=== PATIENT | male | born 1975 | race Caucasian/White ===

== ENCOUNTER → 2016-10-18 | Outpatient (REF) | payer OTHER | LOC: M SFHCSACK 08:50 | PROVIDERS: ATTEND Physician Assistant | DX: E06.3 Autoimmune thyroiditis (principal) ==

== ENCOUNTER → 2017-06-08 | Outpatient (REF) | payer OTHER ==
[2017-06-08 15:44] LABS: BASO % 0.8 % (0.0-1.0); EOS # 0.1 10^3/uL (0.0-0.50); EOS % 1.9 % (0.0-3.0); IMMATURE GRANULOCYTE % 0.2 % (0-0); LYMPH # 2.1 10^3/uL (1.5-4.5); LYMPH % 40.2 % (24.0-44.0); MEAN CORPUSCULAR HEMOGLOBIN 27.8 pg (27.0-33.0); MEAN CORPUSCULAR VOLUME 84.2 fl (80.0-96.0); MONO # 0.4 10^3/uL (0.0-0.8); MONO % 8.3 % (0.0-5.0); NEUTROPHILS # 2.6 10^3/uL (1.8-7.7); NEUTROPHILS % 48.6 % (36.0-66.0); PLATELET COUNT, AUTOMATED 161 10^3/uL (150-450); RED CELL DISTRIBUTION WIDTH 12.2 % (11.5-14.5); WHITE BLOOD COUNT 5.3 10^3/uL (4.0-10.0)
[2017-06-08 15:55] LABS: ALBUMIN 3.8 GM/DL (3.2-5.2); ALBUMIN/GLOBULIN RATIO 1.23 (1.00-1.93); ALKALINE PHOSPHATASE 46 U/L (45-117); ALT/SGPT 49 U/L (12-78); ANION GAP 8 MEQ/L (8-16); AST/SGOT 24 U/L (15-37); BILIRUBIN,TOTAL 0.5 MG/DL (0.2-1.0); BLOOD UREA NITROGEN 13 MG/DL (7-18); CALCIUM LEVEL 8.4 MG/DL (8.5-10.1); CARBON DIOXIDE LEVEL 29 MEQ/L (21-32); CHLORIDE LEVEL 104 MEQ/L (98-107); CHOLESTEROL LEVEL 215 MG/DL (<200); CREATININE FOR GFR 1.09 MG/DL (0.70-1.30); GLOMERULAR FILTRATION RATE > 60.0 (>60); GLUCOSE, FASTING 105 MG/DL (70-105); SODIUM LEVEL 141 MEQ/L (136-145); TOTAL PROTEIN 6.9 GM/DL (6.4-8.2); TRIGLYCERIDES LEVEL 169 MG/DL (<150)
== END ==
LOC: M SFHCSACK 09:21
PROVIDERS: ATTEND Physician Assistant
DX: R53.82 Chronic fatigue, unspecified (principal); E78.2 Mixed hyperlipidemia; E06.3 Autoimmune thyroiditis; E55.9 Vitamin D deficiency, unspecified

== ENCOUNTER → 2018-06-27 | Outpatient (REF) | payer OTHER ==
[2018-06-27 14:58] LABS: BASO % 0.7 % (0.0-1.0); EOS % 0.2 % (0.0-3.0); HEMOGLOBIN 15.7 g/dl (13.5-17.5); IMMATURE GRANULOCYTE % 0.3 % (0-3.0); LYMPH # 2.6 10^3/uL (1.5-4.5); LYMPH % 42.9 % (24.0-44.0); MEAN CORPUSCULAR HEMOGLOBIN 27.7 pg (27.0-33.0); MEAN CORPUSCULAR HGB CONC 33.4 g/dl (32.0-36.5); MONO # 0.5 10^3/uL (0.0-0.8); MONO % 8.7 % (0.0-5.0); NEUTROPHILS # 2.8 10^3/uL (1.8-7.7); NEUTROPHILS % 47.2 % (36.0-66.0); PLATELET COUNT, AUTOMATED 176 10^3/uL (150-450); RED BLOOD COUNT 5.66 10^6/uL (4.30-6.10); RED CELL DISTRIBUTION WIDTH 12.5 % (11.5-14.5)
[2018-06-27 15:30] LABS: ALBUMIN 3.6 GM/DL (3.2-5.2); ALBUMIN/GLOBULIN RATIO 1.06 (1.00-1.93); ALKALINE PHOSPHATASE 50 U/L (45-117); ALT/SGPT 38 U/L (12-78); ANION GAP 6 MEQ/L (8-16); AST/SGOT 21 U/L (7-37); BILIRUBIN,TOTAL 0.3 MG/DL (0.2-1.0); BLOOD UREA NITROGEN 16 MG/DL (7-18); CALCIUM LEVEL 8.4 MG/DL (8.5-10.1); CARBON DIOXIDE LEVEL 29 MEQ/L (21-32); CHLORIDE LEVEL 106 MEQ/L (98-107); CHOLESTEROL LEVEL 220 MG/DL (<200); CREATININE FOR GFR 1.05 MG/DL (0.70-1.30); FREE T4 0.91 NG/DL (0.76-1.46); GLOMERULAR FILTRATION RATE > 60.0 (>60); GLUCOSE, FASTING 93 MG/DL (70-100); HDL CHOLESTEROL 44 MG/DL (>40); LDL CHOLESTEROL 137 MG/DL (<100); NON-HDL-C 176 MG/DL; POTASSIUM SERUM 4.5 MEQ/L (3.5-5.1); SODIUM LEVEL 141 MEQ/L (136-145); TRIGLYCERIDES LEVEL 197 MG/DL (<150)
[2018-06-27 15:32] LABS: TOTAL 25(OH) VITAMIN D 30.1 NG/ML (30.0-100.0)
== END ==
LOC: M SFHCSACK 09:16
DX: J30.9 Allergic rhinitis, unspecified (principal); E78.2 Mixed hyperlipidemia; E03.9 Hypothyroidism, unspecified; E55.9 Vitamin D deficiency, unspecified
CPT/HCPCS: 84443

== ENCOUNTER → 2019-08-13 | Outpatient (REF) | payer OTHER ==
[2019-08-13 14:38] LABS: BASO % 0.7 % (0.0-1.0); HEMATOCRIT 48.4 % (42.0-52.0); HEMOGLOBIN 15.7 g/dl (13.5-17.5); LYMPH # 2.2 10^3/uL (1.5-5.0); LYMPH % 40.6 % (24.0-44.0); MEAN CORPUSCULAR HEMOGLOBIN 27.6 pg (27.0-33.0); MEAN CORPUSCULAR HGB CONC 32.4 g/dl (32.0-36.5); MEAN CORPUSCULAR VOLUME 85.1 fl (80.0-96.0); MONO # 0.4 10^3/uL (0.0-0.8); MONO % 6.7 % (0.0-5.0); NEUTROPHILS # 2.9 10^3/uL (1.5-8.5); NEUTROPHILS % 51.8 % (36.0-66.0); PLATELET COUNT, AUTOMATED 161 10^3/uL (150-450); RED BLOOD COUNT 5.69 10^6/uL (4.30-6.10); WHITE BLOOD COUNT 5.5 10^3/uL (4.0-10.0)
[2019-08-13 15:09] LABS: ALT/SGPT 53 U/L (12-78); BILIRUBIN,TOTAL 0.4 MG/DL (0.2-1.0); BLOOD UREA NITROGEN 14 MG/DL (7-18); CALCIUM LEVEL 8.8 MG/DL (8.5-10.1); CARBON DIOXIDE LEVEL 26 MEQ/L (21-32); CHLORIDE LEVEL 107 MEQ/L (98-107); CHOLESTEROL LEVEL 268 MG/DL (<200); CREATININE FOR GFR 1.07 MG/DL (0.70-1.30); FREE T4 0.58 NG/DL (0.76-1.46); GLOMERULAR FILTRATION RATE > 60.0 (>60); GLUCOSE, FASTING 131 MG/DL (70-100); HDL CHOLESTEROL 44 MG/DL (>40); LDL CHOLESTEROL 185 MG/DL (<100); NON-HDL-C 224 MG/DL; POTASSIUM SERUM 4.2 MEQ/L (3.5-5.1); SODIUM LEVEL 140 MEQ/L (136-145); TOTAL PROTEIN 7.4 GM/DL (6.4-8.2); TRIGLYCERIDES LEVEL 197 MG/DL (<150)
== END ==
LOC: M SFHCSACK 09:35
PROVIDERS: ATTEND Physician Assistant
DX: E55.9 Vitamin D deficiency, unspecified (principal); E78.2 Mixed hyperlipidemia; E06.3 Autoimmune thyroiditis

== ENCOUNTER → 2019-08-20 | Outpatient (REF) | payer OTHER | LOC: M SFHCSACK 11:51 | PROVIDERS: ATTEND Physician Assistant | DX: E55.9 Vitamin D deficiency, unspecified (principal) ==

== ENCOUNTER → 2019-11-04 | Outpatient (CLI) | payer OTHER ==
[2019-11-04 15:07] LABS: FREE T4 1.6 NG/DL (0.76-1.46); THYROID STIMULATING HORMONE 0.603 uIU/ML (0.358-3.740)
== END ==
LOC: M LAB 13:08
PROVIDERS: ATTEND Nurse Practitioner Family
DX: E06.3 Autoimmune thyroiditis (principal)

== ENCOUNTER → 2020-01-31 | Outpatient (CLI) | payer OTHER ==
[2020-02-01 09:12] LABS: FREE T4 1.27 NG/DL (0.76-1.46); THYROID STIMULATING HORMONE 4.11 uIU/ML (0.358-3.740)
== END ==
LOC: M WUC 09:43
PROVIDERS: ATTEND Nurse Practitioner Family
DX: E06.3 Autoimmune thyroiditis (principal)

== ENCOUNTER → 2020-05-04 | Outpatient (CLI) | payer OTHER ==
[2020-05-04 10:47] LABS: FREE T4 1.36 NG/DL (0.76-1.46); THYROID STIMULATING HORMONE 3.39 uIU/ML (0.358-3.740)
== END ==
LOC: M WUC 08:07
PROVIDERS: ATTEND Nurse Practitioner Family
DX: E06.3 Autoimmune thyroiditis (principal)

== ENCOUNTER → 2020-06-10 | Outpatient (CLI) | payer OTHER ==
[2020-06-10 11:52] LABS: THYROID STIMULATING HORMONE 2.66 uIU/ML (0.358-3.740)
[2020-06-10 11:53] LABS: FREE T4 1.41 NG/DL (0.76-1.46)
== END ==
LOC: M WUC 09:21
PROVIDERS: ATTEND Nurse Practitioner Family
DX: E06.3 Autoimmune thyroiditis (principal)

== ENCOUNTER → 2020-06-11 | Outpatient (REF) | payer OTHER ==
[2020-06-11 14:49] LABS: MALB URINE SIEMENS 12.7 MG/L; MAU/CREAT RATIO 28.8 MCG/MG (0.0-30.0)
== END ==
LOC: M LAB REF 13:16
PROVIDERS: ATTEND Nurse Practitioner Family
DX: E11.65 Type 2 diabetes mellitus with hyperglycemia (principal)

== ENCOUNTER → 2020-08-19 | Outpatient (CLI) | payer BC, OTHER ==
[~2020-08-19] MED LIST: BASA100I SC; BENA25CA4 PO; CETI-24 PO; HYDR-3713 PO; LEVO112T2 PO; METF500T13 PO; OMEP-218 PO; SIMV20TA22 PO; VITA50005 PO
== END ==
LOC: M LABSMTC 14:33
PROVIDERS: ATTEND Anesthesiology
DX: Z01.812 Encounter for preprocedural laboratory examination (principal); Z20.828 Contact with and (suspected) exposure to other viral communicable diseases

== ENCOUNTER 2020-08-24 12:36 | Day surgery (SDC) | payer BC, MEDICAID ==
[~2020-08-24] VITALS: Ht 188 cm; Wt 114.7 kg
[~2020-08-24 12:36] MED LIST changes: +ACETAMINOPHEN 1000MG 100ML IV BTL (OFIRMEV) (J0131 PER 10MG) As Ordered ONE; -HYDR-3713 PO; +KETOROLAC 60MG 2ML VIAL As Ordered ONE; +LIDOCAINE 2% 100MG/5ML SDV (FOR ANES.) As Ordered ONE; +MIDAZOLAM INJ 2MG/2ML VIAL (J2250 PER 1MG) As Ordered ONE; +ONDANSETRON 4MG/2ML VIAL As Ordered ONE; +ROCURONIUM BROMIDE 50 MG/5 ML VIAL As Ordered ONE; +SUGAMMADEX SODIUM 500 MG/5 ML VIAL (BRIDION) As Ordered ONE; +dexameTHASONE 4 MG/ML 1ML VIAL (J1100 PER 1MG) As Ordered ONE; +fentaNYL 100 MCG/2 ML INJECTION (J3010) As Ordered ONE; +propofoL 200 MG/20 ML VIAL As Ordered ONE
[2020-08-24] MEDS: LR 1,000 ML IV ONE (14:03)
[2020-08-24] MEDS ORDERED: fentaNYL 100 MCG/2 ML INJECTION (J3010) As Ordered ONE ×2 (19:16→20:20)
[2020-08-24] MEDS: BUPIVACAINE HCL 0.25% 30ML VIAL As Ordered ONE (19:38)
[2020-08-24] MEDS ORDERED: ROCURONIUM BROMIDE 50 MG/5 ML VIAL As Ordered ONE (19:54)
[2020-08-24] MEDS ORDERED: LR 1,000 ML IV SCH (21:00)
[2020-08-24] MEDS ORDERED: fentaNYL 100 MCG/2 ML INJECTION (J3010) IV PRN (21:00)
[2020-08-24] MEDS ORDERED: KETOROLAC 30 MG/ML 1ML VIAL IV PRN (21:00)
[2020-08-24] MEDS: ONDANSETRON 4MG/2ML VIAL IV PRN (21:10)
[2020-08-24] MEDS ORDERED: ONDANSETRON 4MG/2ML VIAL As Ordered ONE (21:12)
[2020-08-24] MEDS ORDERED: HYDR-3713 PO (21:19)
[2020-08-24] MEDS ORDERED: ACETAMINOPHEN TAB 650MG DOSE (2X325MG) PO PRN (22:00)
[2020-08-24] MEDS ORDERED: NORCO, ANEXSIA 5/325MG TABLET (HYDROcodone/ACETAMINOPHEN) PO PRN (22:00)
[2020-08-24] MEDS ORDERED: IBUPROFEN 600MG TAB PO PRN (22:00)
[2020-08-24] MEDS: METOCLOPRAMIDE INJ 10MG/2ML VIAL (J2765 PER 1) IV PRN (22:06)
[2020-08-24] MEDS: PERCOCET 5MG/325MG TAB PO PRN (22:07)
[2020-08-24 22:54] VITALS: BP 106/66
--- NOTE | 2020-08-30 11:39 | RO ---
OPERATIVE NOTE DATE OF OPERATION: 08/24/2020 PREOPERATIVE DIAGNOSIS: Epigastric and umbilical hernia. POSTOPERATIVE DIAGNOSIS: Epigastric and umbilical hernia. PROCEDURE PERFORMED: Robotic assisted laparoscopic repair of epigastric and umbilical hernias with Parietex mesh. SURGEON: Joel Bahena MD ANESTHESIA: General. INDICATIONS FOR THE PROCEDURE: The patient is a 45-year-old man, who had noted a small bulge above the umbilicus. Examination confirmed an epigastric hernia just above the umbilicus as well as a small umbilical hernia. He is now for repair of both hernias as a robotic assisted hernia repair. OPERATIVE PROCEDURE: The patient was brought to the operating room and placed on the table in a supine position. He was placed under general endotracheal anesthesia. The patient's abdomen was prepped and draped in a sterile fashion. 25% Marcaine was infiltrated at each of the trocar sites as needed. A short transverse incision was made in the far left lateral abdomen at about the level of the umbilicus. The Veress needle was inserted and after positive hanging drop test the abdomen was inflated with carbon dioxide gas. After the abdomen was inflated, an 8 mm port was placed over 5 mm scope and advanced through the abdominal wall without difficulty. Initial examination showed no evidence of trocar or Veress needle injury. The patient was noted to have two small hernia defects anteriorly, one at the umbilicus and one just above. A second 8 mm port was placed in the left upper quadrant and a third was placed in the left lower quadrant. The patient was rolled slightly to the right and placed in a slight Trendelenburg position. The patient cart of the da Ella XI robot was brought into position and the endoscope port was docked to the middle port. Targeting took place on the anterior abdominal wall and the remaining ports were then docked to the appropriate arms. Cauterizing scissors and a fenestrated bipolar grasper were inserted. I then moved to the control console to proceed with the robotic portion of the procedure. Inspection of the anterior abdominal wall revealed a small area of preperitoneal fat extended down the midline. He was noted to have the two distinct hernial defects as initially reported. A peritoneal flap was then begun at the lateral extent to the left of the preperitoneal fat. The peritoneum was scored and the peritoneum with the preperitoneal fat was then carefully peeled away from the overlying fascia and freed extending to the right. As the hernial defects were identified, the peritoneum was freed and reduced back into the abdomen with some herniated preperitoneal fat as well. The dissection was then carried across an additional 3 to 4 cm to the right of the midline. The dissection was carried superiorly and inferiorly slightly to ensure that there were no other defects. Each of the defects was approximately 1 to 1.5 cm in size in size. A 1-0 STRATAFIX suture was then inserted and this was used to suture the defects closed in a longitudinal fashion. There was an approximately 1 cm bridge between the two openings, which was also invaginated beneath this suture line. The intraabdominal pressure was reduced to approximately 10 mmHg to allow this closure to be performed more readily. A 9 cm round Parietex patch was then selected. Initially 1 cm was shaved off of each side of the mesh to create a roughly 7 x 9 cm patch and this was then inserted into the abdomen and placed into the preperitoneal space. It was slightly too long and slightly too wide for this space, so using the scissors, I trimmed an approximately cm off the lateral and inferior margin and this fit very nicely into the preperitoneal space. This was then sutured across the midline of the mesh transversely with an absorbable 2-0 V-Loc suture and the suture was then carried circumferentially around the mesh and then also down the longitudinal midline of the mesh using an additional suture. This nicely positioned the mesh to cover both of the defects very nicely with a wide overlap. The peritoneal flap was then closed with a running suture of absorbable 2-0 V-Loc. Final inspection showed an excellent closure with no exposed mesh. The patient cart was un-docked from the trocars and withdrawn. The abdomen was deflated and the trocars were removed. I then proceeded to close the skin incisions with buried 4-0 Vicryl sutures and Steri-Strips. The patient tolerated the procedure well without apparent complication. The mesh utilized was a 9 cm round Parietex patch, reference code PC09X and lot number [id number]. He was awakened in the operating room extubated and moved to the recovery room in stable condition. edited: 09/06/2020 0735 padmaja SILVA
== END 2020-08-24 23:07 | disposition home or self-care (01) ==
LOC: M SDC 12:36
PROVIDERS: ATTEND Surgery
DX: K42.9 Umbilical hernia without obstruction or gangrene (principal); K43.9 Ventral hernia without obstruction or gangrene; E06.3 Autoimmune thyroiditis; E11.9 Type 2 diabetes mellitus without complications; E66.9 Obesity, unspecified; E78.00 Pure hypercholesterolemia, unspecified; K21.9 Gastro-esophageal reflux disease without esophagitis; L40.9 Psoriasis, unspecified; Z79.4 Long term (current) use of insulin; Z79.890 Hormone replacement therapy; Z79.899 Other long term (current) drug therapy; Z87.891 Personal history of nicotine dependence
CPT/HCPCS: 49652; 96374; 96375; C1781; J0131; J1100; J1885; J2250; J2405; J2765; J3010; S2900

== ENCOUNTER → 2021-09-28 | Outpatient (REF) | payer BC, MEDICAID ==
[~2021-09-28] MED LIST changes: -ACETAMINOPHEN 1000MG 100ML IV BTL (OFIRMEV) (J0131 PER 10MG) As Ordered ONE; +ERGO500029 PO; +HYDR-3713 PO; -KETOROLAC 60MG 2ML VIAL As Ordered ONE; -LIDOCAINE 2% 100MG/5ML SDV (FOR ANES.) As Ordered ONE; -MIDAZOLAM INJ 2MG/2ML VIAL (J2250 PER 1MG) As Ordered ONE; +OMEP-173 PO; -OMEP-218 PO; -ONDANSETRON 4MG/2ML VIAL As Ordered ONE; -ROCURONIUM BROMIDE 50 MG/5 ML VIAL As Ordered ONE; -SUGAMMADEX SODIUM 500 MG/5 ML VIAL (BRIDION) As Ordered ONE; -VITA50005 PO; -dexameTHASONE 4 MG/ML 1ML VIAL (J1100 PER 1MG) As Ordered ONE; -fentaNYL 100 MCG/2 ML INJECTION (J3010) As Ordered ONE; -propofoL 200 MG/20 ML VIAL As Ordered ONE
[2021-09-28 19:36] LABS: APPEARANCE, URINE CLEAR (CLEAR); BACTERIA, URINE AUTO NEGATIVE (NEGATIVE); BILIRUBIN, URINE AUTO NEGATIVE (NEGATIVE); BLOOD, URINE BLOOD NEGATIVE (NEGATIVE); COLOR, URINE YELLOW (YELLOW); GLUCOSE, URINE (UA) AUTO 3+ mg/dL (NEGATIVE); KETONE, URINE AUTO TRACE mg/dL (NEGATIVE); LEUKOCYTE ESTERASE, URINE AUTO NEGATIVE (NEGATIVE); MUCUS, URINE SMALL (NEGATIVE); NITRITE, URINE AUTO NEGATIVE (NEGATIVE); PROTEIN, URINE AUTO NEGATIVE (NEGATIVE); RBC, URINE AUTO 0 /HPF (0-3); SPECIFIC GRAVITY URINE AUTO 1.038 (1.002-1.035); SQUAMOUS EPITHELIAL CELL UR AU 0 /HPF (0-6); UROBILINOGEN, URINE AUTO 0.2 mg/dL (0.0-2.0); WBC, URINE AUTO 1 /HPF (0-3)
== END ==
LOC: M SMT 16:37
PROVIDERS: ATTEND Urology
DX: R35.0 Frequency of micturition (principal)

== ENCOUNTER → 2022-03-13 | Outpatient (CLI) | payer BC, MEDICAID ==
[2022-03-13 13:37] LABS: BASO # 0.1 10^3/uL (0.0-0.2); BASO % 1.1 % (0.0-1.0); EOS % 0.3 % (0.0-3.0); HEMATOCRIT 44.6 % (42.0-52.0); HEMOGLOBIN 12.5 g/dl (13.5-17.5); LYMPH # 2.3 10^3/uL (1.5-5.0); LYMPH % 36.5 % (24.0-44.0); MEAN CORPUSCULAR HEMOGLOBIN 18.3 pg (27.0-33.0); MEAN CORPUSCULAR VOLUME 65.4 fl (80.0-96.0); MONO # 0.5 10^3/uL (0.0-0.8); MONO % 7.3 % (2.0-8.0); NEUTROPHILS # 3.4 10^3/uL (1.5-8.5); NEUTROPHILS % 54.3 % (36.0-66.0); PLATELET COUNT, AUTOMATED 225 10^3/uL (150-450); RED BLOOD COUNT 6.82 10^6/uL (4.30-6.10); WHITE BLOOD COUNT 6.3 10^3/uL (4.0-10.0)
[2022-03-17 12:09] LABS: COPPER PLASMA 120 ug/dL (69-132); LEAD BLOOD ADULT <1 ug/dL (0-4)
== END ==
LOC: M PLALAB 10:02
PROVIDERS: ATTEND Internal Medicine Hematology
DX: D50.9 Iron deficiency anemia, unspecified (principal)

== ENCOUNTER 2022-04-28 08:06 | Outpatient (CLI) | payer BC, MEDICAID ==
[~2022-04-28] VITALS: Ht 157.5 cm; Wt 129.7 kg
[~2022-04-28 08:06] MED LIST changes: +ALBUTEROL SULFATE 2.5 MG/0.5 ML INH NEB SOLN INH PRN; +EPINEPHrine INJ 1 MG/ML 1ML AMP IM PRN; +diphenhydrAMINE 50MG/ML VIAL (J1200) IV PRN; +methylPREDNISolone 125MG 2ML VIAL IV PRN
[2022-04-28 08:10] VITALS: BP 131/73
[2022-04-28] MEDS ORDERED: FERRIC CARBOXYMALTOSE INJ 750 MG in NS 250 ML (>50kg) IV ONE ×3 (08:30)
[2022-04-28] MEDS ORDERED: NS 1,000 ML IV SCH (08:30)
[2022-04-28 09:30] VITALS: BP 115/72
== END 2022-04-28 09:45 | disposition home or self-care (01) ==
LOC: M INFU 08:06
PROVIDERS: ATTEND Internal Medicine Hematology
DX: D64.9 Anemia, unspecified (principal)
CPT/HCPCS: 96365; 96366; J1439

== ENCOUNTER → 2022-07-07 | Outpatient (CLI) | payer BC, MEDICAID ==
[~2022-07-07] MED LIST changes: -ALBUTEROL SULFATE 2.5 MG/0.5 ML INH NEB SOLN INH PRN; -EPINEPHrine INJ 1 MG/ML 1ML AMP IM PRN; -diphenhydrAMINE 50MG/ML VIAL (J1200) IV PRN; -methylPREDNISolone 125MG 2ML VIAL IV PRN
== END ==
LOC: M SLEEP 20:00
PROVIDERS: ATTEND Nurse Practitioner Family
DX: G47.33 Obstructive sleep apnea (adult) (pediatric) (principal)

== ENCOUNTER → 2022-09-05 | Outpatient (CLI) | payer BC, MEDICAID ==
[~2022-09-05] MED LIST changes: +E-Z-PAQUE 96% w/w SUSP 176GM BTL As Ordered ONE
== END ==
LOC: M RAD 09:52
PROVIDERS: ATTEND Nurse Practitioner Family
DX: D50.9 Iron deficiency anemia, unspecified (principal)

== ENCOUNTER 2023-07-09 10:27 | Day surgery (SDC) | payer BC, MEDICAID ==
[~2023-07-09] VITALS: Ht 188 cm; Wt 106.3 kg
[~2023-07-09 10:27] MED LIST changes: +CYCL-707 PO; -E-Z-PAQUE 96% w/w SUSP 176GM BTL As Ordered ONE; +FLON1SPR; +GABA600T4 PO; +MELO7.5T35 PO; +MODA100T13 PO; +SEMA0.257 SQ; +SYNT137T7 PO; +VITMTA PO
[2023-07-09] MEDS ORDERED: LR 1,000 ML IV SCH ×3 (10:50→17:50)
[2023-07-09] MEDS ORDERED: COCAINE 4% 4ML NASAL SOLUTION BTL As Ordered ONE (14:17)
[2023-07-09] MEDS ORDERED: LIDOCAINE W/EPINEPHRINE 1% 20ML VIAL As Ordered ONE (14:17)
[2023-07-09] MEDS ORDERED: OXYMETAZOLINE 0.05% NASAL SPRAY (AFRIN) As Ordered ONE (14:18)
[2023-07-09] MEDS ORDERED: ACETAMINOPHEN 1000MG 100ML IV BAG As Ordered ONE (14:49)
[2023-07-09] MEDS ORDERED: MIDAZOLAM INJ 2MG/2ML VIAL As Ordered ONE (14:49)
[2023-07-09] MEDS ORDERED: ONDANSETRON 4MG 2ML VIAL As Ordered ONE (14:49)
[2023-07-09] MEDS ORDERED: propofoL 200 MG/20 ML VIAL As Ordered ONE (14:49)
[2023-07-09] MEDS ORDERED: SUGAMMADEX SODIUM 500 MG/5 ML VIAL (BRIDION) As Ordered ONE (14:49)
[2023-07-09] MEDS ORDERED: ROCURONIUM BROMIDE 50MG/5ML VIAL As Ordered ONE (14:49)
[2023-07-09] MEDS ORDERED: LIDOCAINE 2% 100MG/5ML SDV (FOR ANES.) As Ordered ONE (14:49)
[2023-07-09] MEDS ORDERED: fentaNYL 250 MCG/5 ML INJECTION As Ordered ONE (14:49)
[2023-07-09] MEDS ORDERED: dexmedeTOMIDine (4MCG/ML)200MCG/50ML BTL (PRECEDEX) As Ordered ONE (14:49)
[2023-07-09] MEDS ORDERED: MEPERIDINE 25 MG/ML 1ML VIAL IV PRN (16:40)
[2023-07-09] MEDS ORDERED: ONDANSETRON 4MG 2ML VIAL IV PRN ×2 (16:40→17:50)
[2023-07-09] MEDS: oxyCODONE 5MG TAB PO PRN ×2 (17:18→17:51)
[2023-07-09] MEDS ORDERED: METOCLOPRAMIDE INJ 10MG/2ML VIAL IV PRN (17:35)
[2023-07-09] MEDS: fentaNYL 100 MCG/2 ML INJECTION IV PRN ×2 (17:47→17:53)
[2023-07-09] MEDS ORDERED: ANEXSIA, NORCO 7.5MG/325MG TABLET(HYDROCODONE/APAP) PO PRN (17:50)
[2023-07-09] MEDS ORDERED: MORPHINE 10 MG/ML 1ML VIAL IV PRN (17:50)
[2023-07-09 18:30] VITALS: BP 122/75; TEMP 96.8; O2SAT 95
== END 2023-07-09 18:56 | disposition home or self-care (01) ==
LOC: M SDC 10:27
PROVIDERS: ATTEND Otolaryngology
DX: J34.2 Deviated nasal septum (principal); J34.3 Hypertrophy of nasal turbinates; E11.9 Type 2 diabetes mellitus without complications; G47.30 Sleep apnea, unspecified; J30.9 Allergic rhinitis, unspecified; Z79.899 Other long term (current) drug therapy; Z79.84 Long term (current) use of oral hypoglycemic drugs; Z79.85 Long-term (current) use of injectable non-insulin antidiabetic drugs
CPT/HCPCS: 30140; 30520; C9143; J0131; J1100; J2250; J2405; J2765; J3010

== ENCOUNTER → 2023-09-13 | Outpatient (REF) | payer BC, MEDICAID | LOC: M LAB REF 17:36 | PROVIDERS: ATTEND Otolaryngology | DX: K13.79 Other lesions of oral mucosa (principal) ==